=== PATIENT | female | born 1960 | race Caucasian/White ===

== ENCOUNTER 2016-11-08 09:26 | Outpatient (CLI) ==
[2016-11-08 09:39] LABS: HEMATOCRIT 39.5 % (37.0-47.0); HEMOGLOBIN 13.6 g/dl (12.0-16.0); MEAN CORPUSCULAR HEMOGLOBIN 30.4 pg (27.0-31.0); MEAN CORPUSCULAR HGB CONC 34.4 (31.8-35.4); MEAN CORPUSCULAR VOLUME 88.4 fl (81.0-99.0); RED BLOOD COUNT 4.47 10^6/ul (4.20-5.40); WHITE BLOOD COUNT 7.5 K/ul (4.6-10.2)
[2016-11-08 09:58] LABS: ALBUMIN 3.8 g/dL (3.4-5.0); ANION GAP 13.1; BILIRUBIN,DIRECT 0.2 mg/dL (0.00-0.30); BILIRUBIN,TOTAL 0.5 mg/dL (0.00-1.20); BUN/CREATININE RATIO 14.63; CALCIUM 9.5 mg/dL (8.2-10.2); CREATININE 0.82 mg/dL (0.60-1.30); POTASSIUM 4.1 mmol/L (3.5-5.10); TOTAL PROTEIN 7.1 g/dL (6.4-8.2)
== END 2016-11-08 09:27 | disposition home or self-care (01) ==
LOC: LAB 09:26
PROVIDERS: ATTEND Internal Medicine Rheumatology
DX: Z51.81 Encounter for therapeutic drug level monitoring (principal)
CPT/HCPCS: 36415; 80048; 80076; 85027

== ENCOUNTER 2017-03-13 16:00 | Outpatient (CLI) ==
[2017-03-13 16:31] LABS: HEMATOCRIT 38.3 % (37.0-47.0); HEMOGLOBIN 13.4 g/dl (12.0-16.0); MEAN CORPUSCULAR HEMOGLOBIN 30.5 pg (27.0-31.0); RED BLOOD COUNT 4.4 10^6/ul (4.20-5.40); WHITE BLOOD COUNT 6.79 K/ul (4.6-10.2)
[2017-03-13 16:49] LABS: ALBUMIN 3.9 g/dL (3.4-5.0); ANION GAP 12.9; BILIRUBIN,DIRECT 0.21 mg/dL (0.00-0.30); BILIRUBIN,TOTAL 0.4 mg/dL (0.00-1.20); BUN/CREATININE RATIO 12.84; CALCIUM 9.3 mg/dL (8.2-10.2); CREATININE 1.09 mg/dL (0.60-1.30); POTASSIUM 3.9 mmol/L (3.5-5.10); TOTAL PROTEIN 7.1 g/dL (6.4-8.2)
== END 2017-03-13 16:01 | disposition home or self-care (01) ==
LOC: LAB 16:00
PROVIDERS: ATTEND Internal Medicine Rheumatology
DX: Z51.81 Encounter for therapeutic drug level monitoring (principal)
CPT/HCPCS: 36415; 80048; 80076; 85027

== ENCOUNTER 2017-05-07 07:29 | Outpatient (CLI) ==
[2017-05-08 08:19] LABS: FOLLICLE STIMULATING HORMONE 73.6 mIU/mL (.); LUTEINIZING HORMONE 36.4 mIU/mL (.); PROLACTIN 8.1 ng/mL (4.8-23.3)
[2017-05-08 15:52] LABS: ACTH 31.2 pg/mL (7.2-63.3)
== END 2017-05-07 07:30 | disposition home or self-care (01) ==
LOC: LAB 07:29
PROVIDERS: ATTEND Neurological Surgery
DX: D35.2 Benign neoplasm of pituitary gland (principal)
CPT/HCPCS: 36415; 82024; 82533; 83001; 83002; 84146; 84439; 84443; 84481

== ENCOUNTER 2017-12-16 08:07 | Outpatient (CLI) ==
--- NOTE | 2017-12-16 10:16 | CT ---
Exam: CT of the chest with intravenous contrast. Comparison: None available. Reason for exam: Follow-up lung nodule. FINDINGS: The thyroid gland is heterogeneous. The heart is not enlarged. The aorta is normal in co urse and caliber. There is a 4 mm nodule in the left lower lobe on axial image number 41. No pneumot horax, pleural effusion, or focal consolidation. The partially imaged anterior cervical discectomy and fusion in the lower cervical spine. Impression: 1. 4 mm nodule left lower lobe on axial image number 41. Recommend 6-month follow-up to document sta bility. 2. Otherwise, no acute imaging findings are seen within the thorax.
== END 2017-12-16 08:08 | disposition home or self-care (01) ==
LOC: RAD 08:07
PROVIDERS: ATTEND Family Medicine
DX: R91.1 Solitary pulmonary nodule (principal)
CPT/HCPCS: 36415; 82565

== ENCOUNTER 2018-01-01 08:04 | Outpatient (CLI) | END 2018-01-01 08:05 | disposition home or self-care (01) | LOC: LAB 08:04 | PROVIDERS: ATTEND Internal Medicine Endocrinology, Diabetes & Metabolism | DX: E04.1 Nontoxic single thyroid nodule (principal) | CPT/HCPCS: 36415; 84439; 84443; 86376 ==

== ENCOUNTER 2018-06-27 08:29 | Outpatient (CLI) ==
--- NOTE | 2018-06-27 10:09 | CT ---
EXAM: CT of the chest with contrast History: Follow-up lung nodules. Comparison: Chest CT 12/16/2017 Technique: Multiplanar CT images through the thorax were obtained following administration of IV con trast Findings: Heart size is within normal limits. No pericardial effusion. Great vessels are unremarkab le. No pathologically enlarged thoracic lymph nodes. There is some debris seen within the mid esoph chevy. No consolidation. No pleural fluid and no pneumothorax. Stable 4 mm benign left lower lobe l colin nodule. No developing lung nodules. Within the visualized upper abdomen, the liver is fatty. No acute osseous abnormalities. Postsurgic al changes of the visualized lower cervical spine. Impression: 1. No acute intrathoracic process. 2. Stable benign 4 mm left lower lobe lung nodule. There are no new lung nodules. No additional fo llow-up is needed. 3. There is debris within the mid esophagus. 4. Hepatic steatosis
--- NOTE | 2018-06-27 10:48 | DEXA ---
Exam: Bone densitometry DEXA scan performed on the [employer]. Reason for exam: Post menopausal. Comparison: 07/01/2015 FINDINGS: Imaging was obtained of the lumbar spine and deemed to be adequate for interpretation. Total BMD of the lumbar spine measures 1.228 grams per centimeter squared T-score 0.4. Z-score 1.4 WHO classification suggests normal bone mineral density Imaging was obtained of the left hip and deemed to be adequate for interpretation. BMD of the left femoral neck measures 0.890 grams per centimeter squared T-score -1.1. Z-score 0.1 WHO classification suggest osteopenia of the left femoral neck. Imaging was obtained of the right hip and deemed to be adequate for interpretation. Total BMD of the right femoral neck measures 0.796 grams per centimeter squared T-score -1.7. Z-score 0.6 WHO classification suggest osteopenia. Impression: 1. WHO classification suggest osteopenia in the left and right femoral necks with normal bone min[place] l density of the lumbar spine. 2. WHO fracture risk assessment tool (FRAX) 10-year fracture risk percentage Major osteoporotic fracture risk over 10 years. 11.2%. Hip fracture risk over 10 years. 1.3%.
== END 2018-06-27 08:30 | disposition home or self-care (01) ==
LOC: RAD 08:29
PROVIDERS: ATTEND Family Medicine
DX: R91.1 Solitary pulmonary nodule (principal); Z78.0 Asymptomatic menopausal state

== ENCOUNTER 2019-03-05 12:06 | Outpatient (CLI) ==
--- NOTE | 2019-03-05 12:32 | DI ---
EXAM: Two views of the chest. History: Cough. Comparison: Chest radiograph 06/16/2014, chest CT 06/27/2018 Findings: Heart size is within normal limits. No focal consolidation. No appreciable pleural fluid and no pneumothorax. No acute osseous abnormalities. Postsurgical changes of the cervical spine. Impression: No acute cardiopulmonary process
== END 2019-03-05 12:07 | disposition home or self-care (01) ==
LOC: RAD 12:06
PROVIDERS: ATTEND Family Medicine
DX: R05 Cough (principal)